=== PATIENT | female | born 1975 | race Asian ===

== ENCOUNTER 2018-12-17 11:51 | Day surgery (SDC) | payer OTHER, SELFPAY ==
[2018-12-17] VITALS (10 sets, daily range): BP systolic 117–149; BP diastolic 75–96; PULSE 62–75; RESP 14–98; TEMP 36.2–36.8; O2SAT 15–99; BMI 36.8
--- NOTE | 2018-12-17 | PATH_ITS ---
[facility] Accession Number: [id number] . 01 Material submitted: . PART A: GASTRIC BIOPSIES PART B: SMALL BOWEL BIOPSIES PART C: ESOPHAGEAL NODULE . 02 Diagnosis: A. Gastric Biopsies: Portions of body-type and antral mucosa with mild chronic gastritis. Negative for H. pylori organisms by immunohistochemical stain. Negative for intestinal metaplasia. Negative for dysplasia and malignancy. . B. Small Bowel Biopsies: Superficial portions of small bowel mucosa with no diagnostic abnormality. Negative for active inflammation, features of sprue, dysplasia or malignancy. . C. Esophageal Nodule: Squamous mucosa with focal features compatible with benign squamous papilloma, in the appropriate clinical context; negative for dysplasia, atypia, or malignancy. Additional levels through the block are noncontributory. MRV/12/22/2018 . 02 Electronically signed: . Nancy Michelle MD, Pathologist NPI- [id number] . 01 Gross description: . Part A: GASTRIC BIOPSIES: Received in formalin are multiple fragment(s) of acmpos, soft tissue measuring 0.5 x 0.2 x 0.2 cm in aggregate submitted entirely in 1 cassette(s) Part B: SMALL BOWEL BIOPSIES: Received in formalin are multiple fragment(s) of campos, soft tissue measuring 0.5 x 0.4 x 0.2 cm in aggregate submitted entirely in 1 cassette(s) Part C: ESOPHAGEAL NODULE: Received in formalin are multiple fragment(s) of campos, soft tissue measuring 0.1 x 0.1 x 0.1 cm in aggregate submitted entirely in 1 cassette(s) /CKI /CKI . 02 Microscopic: . An immunohistochemical stain was performed on block B1 to evaluate for Helicobacter organisms and is negative. The control stain showed appropriate reactivity. . * This test was developed and its performance characteristics determined by [employer]. It has not been cleared or approved by the U.[place]. Food and Drug Administration. The FDA has determined that such clearance or approval is not necessary. This test is used for clinical purposes. It should not be regarded as investigational or for research. . 02 Pathologist provided ICD-10: K29.70 . 02 CPT . 550754, 837508, 520534, H08392 Performed at: 01 [facility] [address], [place], [place] [id number] MD Philippe Cortes MD Phone: [phone] Performed at: [address] [id number] MD Jami Barragan MD Phone: [phone]
--- NOTE | 2018-12-17 11:41 | PM.HP.1 ---
History of Present Illness Date Patient Seen: 12/17/18 Chief complaint: [id number] EGD W/POSS BX Narrative: 43-year-old female with history of epigastric pain not responsive to medication. Please refer to our office note dated 11/25/2018 Patient History Social History household members: spouse and children Meds Home Medications Medication Instructions Recorded Confirmed Type omeprazole 1 cap PO BID 12/17/18 12/17/18 History Allergies Allergy/AdvReac Type Severity Reaction Status Date / Time latex [LATEX] Allergy Mild RASH, HIVES Verified 12/17/18 12:28 hydrocodone [From VICODIN] AdvReac Mild NAUSEA Verified 12/17/18 12:28 Exam Narrative Exam Narrative: General: Patient is obese, not in apparent distress Cardiovascular: Regular rate and rhythm, no murmurs, rubs, or gallops; no evidence of edema; no palpable abdominal aortic aneurysm Gastrointestinal: Normoactive bowel sounds, soft, nontender, nondistended, no rebound tenderness, no hepatosplenomegaly, no evidence of hernia Assessment & Plan Assessment Narrative: 43-year-old female with a history of epigastric pain that has not improved with use of omeprazole. A prior CT was unrevealing for an etiology for her epigastric pain. Regarding the procedure(s), the risks and potential complications, benefits, and alternatives (including not doing the procedure) were discussed with the patient. The risks include but are not limited to bleeding, splenic injury, infection, perforation which may require surgical intervention, missed lesions, and adverse reactions to sedative medicines. After a question and answer period, the patient agreed to proceed with the procedure(s) and gives informed consent.
[2018-12-17] MEDS: SODIUM CHLORIDE 0.9% 1,000 ML 70 ML IV (12:30)
--- NOTE | 2018-12-17 12:56 | P.OP.ENDO_ITS ---
Operative Date/Time/Diagnoses Date of procedure: 12/17/18 Procedure Notes Procedure in detail: Surgeon: Luis Rdz MD Procedure: Esophagogastroduodenoscopy with biopsies Preoperative diagnosis: Epigastric pain not responsive to medications Postoperative diagnosis: Esophageal nodule, otherwise normal EGD Medications: Conscious sedation using 5 mg IV of Midazolam and 100 mcg IV of Fentanyl Preanesthesia Assessment An H and P was performed/updated and the Px?s ASA class is 2. The procedure was discussed in detail with the patient. The potential risks and complications including infection, bleeding, missed lesions, perforation, need for surgery in case of perforation, prolonged hospital stay, and were explained. A brief question and answer period was allotted and once all questions were answered, informed consent was obtained. The patient was brought back to the procedure room and placed on standard monitoring. The patient?s vital signs were monitored continuously throughout the entire procedure. Prior to starting, a timeout was performed to confirm the patient?s identity, allergies, medications, and procedure. Procedure in detail The patient was placed in left lateral decubitus position and a bite block was inserted. The tip of the upper endoscope was placed into the mouth and advanced without difficulty under direct visualization into the esophagus. Esophagus: In the esophagus there is note of a 5 mm mucosal/subepithelial nodule. Biopsies were performed with minimal bleeding Stomach: The entire stomach appeared normal with no evidence of ulcers. Biopsies were taken from the body and antrum to rule out H pylori Duodenum: Entire visualized duodenum appeared normal. Biopsies were taken to rule out celiac disease The patient tolerated the procedure well and will be brought back to the recovery area to be discharged once criteria are met. The total physician intraservice time was 10 min. Complications There were no complications and estimated blood loss was minimal. Recommendations: Resume previous diet Continue outPx medications Keep appointment for HIDA scan Follow up pathology results Office follow up with Dr. Rodrigez after HIDA scan An emergency contact number was given to the patient for any complications relat ed to the procedure
[2018-12-17] MEDS: MIDAZOLAM 5 MG/5 ML VIAL IV (12:58)
[2018-12-17] MEDS: fentaNYL 250 MCG/5 ML INJ IV (12:59)
--- NOTE | 2018-12-17 13:06 | PM.DS.1 ---
History of Present Illness Chief complaint: [id number] EGD W/POSS BX Narrative: 43-year-old female with history of epigastric pain not responsive to medication. Please refer to our office note dated 11/25/2018 Discharge Providers Primary care physician: Oliverio Tabares DO Consults: 12/17/18 12:21 Consult to Respiratory Therapy Evaluate & Treat Comment: Physician Instructions: Evaluate and treat Discharge provider: Luis Rdz MD Discharge Date: 12/17/18 Exam Vital Signs (past 8 hours): - 12/17/18 12:10 Temperature 98.3 F Pulse Rate 73 Respiratory Rate 18 Blood Pressure 149/96 H Pulse Oximetry 98 Oxygen Delivery Method Room Air Narrative Exam Narrative: General: Patient is obese, not in apparent distress Cardiovascular: Regular rate and rhythm, no murmurs, rubs, or gallops; no evidence of edema; no palpable abdominal aortic aneurysm Gastrointestinal: Normoactive bowel sounds, soft, nontender, nondistended, no rebound tenderness, no hepatosplenomegaly, no evidence of hernia Discharge Plan Discharge Plan Patient Disposition: Home Discharge comment: You will be discharged home with a copy of your procedure report Discharge Med Rec/Prescriptions Prescriptions: Continued omeprazole 20 mg Capsule,Delayed Release(Dr/Ec) 1 cap PO BID RF: 0 Follow up/Referrals: Oliverio Tabares DO [Primary Care Provider] - Discharge Orders: Discharge (Order); Ordered 12/17/18 Ordered By: Luis Rdz Provider Discharge Instructions Diet: Diet as Tolerated Visit Report/Discharge Packet Stand Alone Forms: EGD Result: [facility], Surgery Discharge Discharge Data Primary Care Provider: Oliverio Tabares Attending Provider: Luis Rdz
--- NOTE | 2018-12-17 14:29 | SUR.PHASEII ---
pt remains sleepy but pt's stated she could go home and sleep. pt argreed and was d/nita pt able to drink and sit up and just states she is tired.
--- NOTE | 2018-12-17 14:36 | SUR.PHASEII ---
the respirations and the oxygen sat are interchanged,and can't edit it.
== END 2018-12-17 14:30 | disposition home or self-care (01) ==
PROVIDERS: Family Provider Family Medicine; PCP Family Medicine; Visit Provider Internal Medicine Gastroenterology
PROC: 0DJ08ZZ Inspection of Upper Intestinal Tract, Via Natural or Artificial Opening Endoscopic (ICD-10-PCS; CPT 43235; principal; 2018-12-17 13:00)
DX: K29.50 Unspecified chronic gastritis without bleeding (principal); K22.8 Other specified diseases of esophagus
CPT/HCPCS: 43239; J2250; J3010

== ENCOUNTER → 2021-10-06 09:34 | Outpatient (CLI) | payer OTHER, SELFPAY ==
--- NOTE | 2021-10-06 09:35 | DI.MRI.S_ITS ---
PROCEDURE: MR CERVICAL SPINE WO CON INDICATIONS: CERVICAL DISC DISEASE WITH MYELOPATHY TECHNIQUE: Noncontrast sagittal T1 spin echo and T2 fast spin echo, sagittal STIR, foraminal oblique sagittal T2 fast spin echo, and axial gradient echo or T2 fast spin echo through the cervical spine. COMPARISON: [facility], , SPINE CERVICAL 2 OR 3VW, 09/05/2016, 11:31. [facility], , C-SPINE WITHOUT CONTRAST, 08/07/2016, 19:25. FINDINGS: Image quality: This examination is limited by involuntary motion artifact. Alignment and Curvature: There is straightening of the normal cervical lordosis. No focal AP alignment abnormality is seen. Bone Marrow: Marrow demonstrates normal overall signal. Spinal Cord: Visualized spinal cord has normal size and signal. No cerebellar tonsillar herniation. Paraspinous Soft Tissues: No paravertebral masses. Prevertebral soft tissues are normal in thickness. C2-C3: Normal appearance. C3-C4: No significant abnormality is seen. C4-C5: Level within normal limits. C5-C6: Owtz-[id number]-dynknmvs loss of disc height and disc signal can be seen. Moderate disc osteophyte complex is seen, with a central/left disc osteophyte protrusion. There is associated mass effect upon the ventral spinal cord. Moderate facet hypertrophy is seen. There is mild left-sided and minimal right-sided neural foraminal narrowing seen. These degenerative changes have progressed compared to 2016. C6-C7: The disc height is well-preserved. Loss of disc signal is seen at this level. A mild degree of generalized disc osteophyte complex is seen. There is mild left-sided and no significant right-sided neural foraminal narrowing seen. No significant central canal narrowing is seen. When comparison is made with the prior images, these findings are similar. C7-T1: Normal appearance. IMPRESSION: Focal C5-C6 degenerative change seen, which has progressed compared to 2016. Straightening of the normal cervical lordosis is seen, which is commonly observed in patients with muscular spasm. Dictated by: Martinez Jolley M.D. on 10/06/2021 at 11:52 Approved by: Martinez Jolley M.D. on 10/06/2021 at 11:57
== END ==
PROVIDERS: Family Provider Family Medicine; PCP Family Medicine; Referring Provider Family Medicine; Visit Provider Family Medicine
DX: M47.12 Other spondylosis with myelopathy, cervical region (principal)
CPT/HCPCS: 72141